=== PATIENT | male | born 1955 | race Caucasian/White ===

== ENCOUNTER 2016-03-16 09:13 | Inpatient (IN) | payer BC ==
[~2016-03-16] VITALS: Ht 185.4 cm; Wt 121.4 kg
[~2016-03-16 09:13] MED LIST: DEX4T PO
[2016-03-16 10:15] LABS: Hematocrit 35.1 % (41.0-53.0); Hemoglobin 11.6 g/dL (13.5-17.5); Mean Corpuscular Hemoglobin 29.3 pg (28.0-32.0); Mean Corpuscular Hgb Conc. 32.9 g/dL (32.0-36.0); Mean Corpuscular Volume 89.1 fL (80.0-100.0); Mean Platelet Volume 6.7 fL (7.4-10.4); Platelet Count (auto) 413 10^3/uL (140-450); Red Cell Distribution Width 16.3 % (11.6-16.0); SUSPECT VIEW TRANSMISSION
[2016-03-16] MEDS ORDERED: ONDANSETRON HCL 4 MG/2 ML VIAL IV ONE (10:15)
[2016-03-16] MEDS ORDERED: MORPHINE SULF INJ 2 MG/ML SYRINGE 1ML IV ONE (10:15)
[2016-03-16] MEDS ORDERED: SODIUM CHLORIDE 0.9% 500 ML IV ONE (10:15)
[2016-03-16 10:16] LABS: Metamyelocytes % 0; Myelocytes % 0; Promyelocytes % 0; Reactive Lymphocytes 0
[2016-03-16 10:29] LABS: Albumin 1.6 g/dL (3.4-5.0); Bilirubin, Total 0.8 mg/dL (0.2-1.0); Calcium 7.8 mg/dL (8.5-10.1); Potassium 4.4 mmol/L (3.5-5.1); Total Protein 6.4 g/dL (6.4-8.2)
[2016-03-16 10:59] LABS: Platelet Estimate Adequate; RBC Morphology Normal
[2016-03-16 11:06] LABS: Lactic Acid 2.2 mmol/L (0.4-2.0)
[2016-03-16 11:07] LABS: REFLEX LACTIC ACID YES OR NO YES
[2016-03-16] MEDS ORDERED: MORPHINE SULFATE 4 MG/ML SYRG IV ONE (13:15)
[2016-03-16] MEDS ORDERED: CARI-277 PO (13:22)
[2016-03-16] MEDS ORDERED: CALC-450 PO (13:22)
[2016-03-16] MEDS ORDERED: MORP1CAP32 PO (13:22)
[2016-03-16] MEDS ORDERED: FOLI1TAB6 PO (13:22)
[2016-03-16] MEDS ORDERED: BUME1TAB26 PO (13:24)
[2016-03-16] MEDS ORDERED: POTA10TA51 PO (13:24)
[2016-03-16] MEDS ORDERED: cefTRIAXone 1GM/50ML D5W 50 ML IV ONE ×2 (16:30→17:45)
[2016-03-16] MEDS ORDERED: CLINDAMYCIN 600MG IV 50 ML IV ONE (16:30)
[2016-03-16] MEDS ORDERED: ONDANSETRON HCL 4 MG/2 ML VIAL IV PRN (16:30)
[2016-03-16] MEDS: HYDROmorphone HCL 2 MG/ML VL IV PRN ×2 (16:42→23:55)
[2016-03-16] MEDS: D5W/SOD CHLO 0.9% 1,000 ML IV SCH (17:23)
[2016-03-16 19:25] VITALS: BP 128/77
[2016-03-16] MEDS: HYDROcodone-ACET 5/325MG TAB PO PRN (21:58)
[2016-03-16 22:00] VITALS: BP 128/77
[2016-03-16] MEDS: CLINDAMYCIN 600MG IV 50 ML IV SCH (22:17)
[2016-03-17] MEDS: HYDROmorphone HCL 2 MG/ML VL IV PRN ×2 (04:12→13:17)
[2016-03-17 05:37] LABS: Calcium 7.8 mg/dL (8.5-10.1); Potassium 4.4 mmol/L (3.5-5.1)
[2016-03-17 05:39] LABS: BUN/Creatinine Ratio 28.8
[2016-03-17] MEDS: D5W/SOD CHLO 0.9% 1,000 ML IV SCH ×2 (05:50→19:10)
[2016-03-17] MEDS: HYDROcodone-ACET 5/325MG TAB PO PRN (05:52)
[2016-03-17 05:56] LABS: Hematocrit 34.5 % (41.0-53.0); Hemoglobin 11.2 g/dL (13.5-17.5); Mean Corpuscular Hgb Conc. 32.4 g/dL (32.0-36.0); Mean Corpuscular Volume 89.4 fL (80.0-100.0); Mean Platelet Volume 7.3 fL (7.4-10.4); Platelet Count (auto) 355 10^3/uL (140-450); Red Cell Distribution Width 15.4 % (11.6-16.0); SUSPECT VIEW TRANSMISSION; White Blood Cell 26.9 10^3/uL (4.4-10.8)
[2016-03-17] MEDS: CLINDAMYCIN 600MG IV 50 ML IV SCH (05:56)
[2016-03-17 07:26] LABS: Metamyelocytes % 0; Myelocytes % 0; Promyelocytes % 0; Reactive Lymphocytes 0
[2016-03-17] MEDS ORDERED: HYDROmorphone HCL 2 MG/ML VL IV PRN (08:15)
[2016-03-17 08:30] VITALS: BP 115/77
[2016-03-17 08:30] LABS: Platelet Estimate Adequate; RBC Morphology Normal
[2016-03-17] MEDS ORDERED: cefTRIAXone 1GM/50ML D5W 50 ML IV SCH (09:00)
[2016-03-17 09:22] LABS: Partial Thromboplastin Time 32.1 sec (22.64-33.71)
[2016-03-17 09:27] LABS: INR 1.8 (0.9-1.15); Prothrombin Time 18.5 sec (9.37-12.3)
[2016-03-17] MEDS ORDERED: DEXA4TAB PO (10:07)
[2016-03-17] MEDS ORDERED: HYDR2TAB27 PO (10:09)
[2016-03-17] MEDS ORDERED: ZOLP10TA6 PO (10:10)
[2016-03-17] MEDS: SENNA 8.6 MG TAB PO SCH ×2 (10:27→22:57)
[2016-03-17] MEDS ORDERED: VANCOMYCIN PER PHARMACY 0 MG IV SCH (12:15)
[2016-03-17] MEDS: DOCUSATE SOD 100 MG CAP PO SCH ×2 (12:18→22:57)
[2016-03-17] MEDS ORDERED: LEVOFLOXACIN 500MG 100 ML IV SCH (12:20)
[2016-03-17 13:00] VITALS: BP 137/77
[2016-03-17] MEDS: VANCOMYCIN 1,250 MG in D5W 5% 250 ML IV SCH (13:00)
[2016-03-17] MEDS: MORPHINE SULF 30 mg ER tab PO SCH ×2 (14:15→22:58)
[2016-03-17] MEDS: LEVOFLOXACIN 500MG 100 ML IV SCH (15:24)
[2016-03-17 17:02] VITALS: BP 123/79
[2016-03-17] MEDS: BOOST PLUS 8 ounce PO SCH (17:28)
[2016-03-17 20:25] LABS: Body Fluid Polymorphonuclear 91 %
[2016-03-17 20:52] VITALS: BP 112/67
[2016-03-18] MEDS: VANCOMYCIN 1,250 MG in D5W 5% 250 ML IV SCH ×2 (01:00→13:42)
[2016-03-18 04:55] VITALS: BP 113/69
[2016-03-18 06:33] LABS: Hemoglobin 10.8 g/dL (13.5-17.5); Mean Corpuscular Hemoglobin 28.7 pg (28.0-32.0); Mean Corpuscular Hgb Conc. 31.9 g/dL (32.0-36.0); Mean Corpuscular Volume 89.9 fL (80.0-100.0); Mean Platelet Volume 7.2 fL (7.4-10.4); Platelet Count (auto) 329 10^3/uL (140-450); Red Cell Distribution Width 16.3 % (11.6-16.0); SUSPECT VIEW TRANSMISSION; White Blood Cell 23.3 10^3/uL (4.4-10.8)
[2016-03-18] MEDS: MORPHINE SULF 30 mg ER tab PO SCH ×3 (06:34→23:02)
[2016-03-18 06:48] LABS: Metamyelocytes % 0; Myelocytes % 0; Promyelocytes % 0; Reactive Lymphocytes 0
[2016-03-18 07:12] LABS: Platelet Estimate Adequate
[2016-03-18 07:14] LABS: Burr Cells MODERATE; Ovalocytes MODERATE
[2016-03-18] MEDS: BOOST PLUS 8 ounce PO SCH ×2 (08:00→18:00)
[2016-03-18] MEDS: D5W/SOD CHLO 0.9% 1,000 ML IV SCH (08:30)
[2016-03-18] MEDS: LEVOFLOXACIN 500MG 100 ML IV SCH (08:58)
[2016-03-18] MEDS: SENNA 8.6 MG TAB PO SCH ×2 (08:58→23:02)
[2016-03-18] MEDS: DOCUSATE SOD 100 MG CAP PO SCH ×2 (08:58→23:01)
[2016-03-18 09:00] VITALS: BP 122/74
[2016-03-18 13:00] VITALS: BP 120/73
[2016-03-18] MEDS ORDERED: NALOXONE HCL 0.4 MG/ML VIAL ONE (13:20)
[2016-03-18] MEDS ORDERED: FLUMAZENIL 0.1 MG/ML INJ 10ML MDV IV ONE (13:20)
[2016-03-18] MEDS ORDERED: fentaNYL CITRATE 100 MCG/2 ML VL ONE (13:21)
[2016-03-18] MEDS ORDERED: MIDAZOLAM HCL 1MG/1ML-2 ML VIAL ONE (13:21)
[2016-03-18 17:00] VITALS: BP 124/76
[2016-03-18 21:14] VITALS: BP 131/78
[2016-03-19] MEDS: VANCOMYCIN 1,250 MG in D5W 5% 250 ML IV SCH ×3 (01:52→17:56)
[2016-03-19 04:56] VITALS: BP 122/77
[2016-03-19 05:48] LABS: Hematocrit 34.1 % (41.0-53.0); Mean Corpuscular Hgb Conc. 32.3 g/dL (32.0-36.0); Mean Corpuscular Volume 89.7 fL (80.0-100.0); Mean Platelet Volume 7.1 fL (7.4-10.4); Platelet Count (auto) 313 10^3/uL (140-450); Red Cell Distribution Width 16.7 % (11.6-16.0); SUSPECT VIEW TRANSMISSION; White Blood Cell 25.6 10^3/uL (4.4-10.8)
[2016-03-19 05:58] LABS: Metamyelocytes % 0; Myelocytes % 0; Promyelocytes % 0; Reactive Lymphocytes 0
[2016-03-19] MEDS: MORPHINE SULF 30 mg ER tab PO SCH ×3 (06:23→22:50)
[2016-03-19 06:45] LABS: Platelet Estimate Adequate
[2016-03-19 06:46] LABS: Anisocytosis Slight
[2016-03-19 06:47] LABS: Ovalocytes FEW
[2016-03-19] MEDS: BOOST PLUS 8 ounce PO SCH ×2 (08:23→17:56)
[2016-03-19] MEDS: SENNA 8.6 MG TAB PO SCH ×2 (09:45→22:50)
[2016-03-19] MEDS: DOCUSATE SOD 100 MG CAP PO SCH ×2 (09:47→22:49)
[2016-03-19 10:15] VITALS: BP 113/74
[2016-03-19] MEDS: LEVOFLOXACIN 500MG 100 ML IV SCH (12:08)
[2016-03-19] MEDS: HYDROcodone-ACET 5/325MG TAB PO PRN ×2 (13:54→17:55)
[2016-03-19 14:12] VITALS: BP 126/74
[2016-03-19 16:38] VITALS: BP 105/68
[2016-03-19] MEDS: HYDROmorphone HCL 2 MG/ML VL IV PRN ×2 (20:14→20:58)
[2016-03-19 22:14] VITALS: BP 125/63
[2016-03-20] MEDS: VANCOMYCIN 1,250 MG in D5W 5% 250 ML IV SCH ×3 (01:08→17:20)
[2016-03-20 05:01] VITALS: BP 107/64
[2016-03-20] MEDS: HYDROmorphone HCL 2 MG/ML VL IV PRN ×3 (05:04→17:20)
[2016-03-20] MEDS: MORPHINE SULF 30 mg ER tab PO SCH ×3 (06:14→22:10)
[2016-03-20] MEDS: BOOST PLUS 8 ounce PO SCH ×2 (08:00→18:10)
[2016-03-20 08:35] VITALS: BP 111/74
[2016-03-20] MEDS ORDERED: LIDOCAINE 2%HCL (LOCAL ANESTH.) INJ 20ML MDV ONE (09:07)
[2016-03-20] MEDS ORDERED: MIDAZOLAM HCL 1MG/1ML-2 ML VIAL ONE (09:16)
[2016-03-20] MEDS ORDERED: fentaNYL CITRATE 100 MCG/2 ML VL ONE (09:16)
[2016-03-20] MEDS: DOCUSATE SOD 100 MG CAP PO SCH ×2 (10:58→22:10)
[2016-03-20] MEDS: SENNA 8.6 MG TAB PO SCH ×2 (10:58→22:10)
[2016-03-20] MEDS: LEVOFLOXACIN 500MG 100 ML IV SCH (12:19)
[2016-03-20] MEDS: HYDROcodone-ACET 5/325MG TAB PO PRN ×2 (12:19→20:27)
[2016-03-20 12:39] VITALS: BP 101/64
[2016-03-20 17:25] VITALS: BP 107/61
[2016-03-20 21:57] VITALS: BP 101/64
[2016-03-20] MEDS ORDERED: ZOLPIDEM TARTRATE 5 MG TAB PO PRN (22:15)
[2016-03-21] MEDS: VANCOMYCIN 1,250 MG in D5W 5% 250 ML IV SCH ×3 (00:37→17:18)
[2016-03-21 04:38] VITALS: BP 106/72
[2016-03-21 05:26] LABS: Hematocrit 28.4 % (41.0-53.0); Hemoglobin 9.3 g/dL (13.5-17.5); Mean Corpuscular Hemoglobin 29.4 pg (28.0-32.0); Mean Corpuscular Hgb Conc. 32.9 g/dL (32.0-36.0); Mean Corpuscular Volume 89.4 fL (80.0-100.0); Mean Platelet Volume 7.2 fL (7.4-10.4); Platelet Count (auto) 258 10^3/uL (140-450); Red Cell Distribution Width 16.4 % (11.6-16.0); SUSPECT VIEW TRANSMISSION
[2016-03-21 05:31] LABS: Metamyelocytes % 0; Myelocytes % 0; Promyelocytes % 0; Reactive Lymphocytes 0
[2016-03-21 05:41] LABS: BUN/Creatinine Ratio 36.8; Calcium 6.7 mg/dL (8.5-10.1); Potassium 4.1 mmol/L (3.5-5.1)
[2016-03-21] MEDS: MORPHINE SULF 30 mg ER tab PO SCH ×3 (06:02→22:13)
[2016-03-21 08:01] LABS: Anisocytosis Slight; Ovalocytes FEW; Platelet Estimate Adequate
[2016-03-21 09:00] VITALS: BP 119/72
[2016-03-21] MEDS: BOOST PLUS 8 ounce PO SCH ×2 (09:08→17:18)
[2016-03-21] MEDS: SENNA 8.6 MG TAB PO SCH ×2 (09:19→22:13)
[2016-03-21] MEDS: DOCUSATE SOD 100 MG CAP PO SCH ×2 (09:19→22:13)
[2016-03-21] MEDS: HYDROmorphone HCL 2 MG/ML VL IV PRN ×4 (09:19→21:18)
[2016-03-21] MEDS: LEVOFLOXACIN 500MG 100 ML IV SCH (11:57)
[2016-03-21 13:00] VITALS: BP 104/66
[2016-03-21 16:55] VITALS: BP 108/60
[2016-03-21 22:00] VITALS: BP 101/65
[2016-03-21 22:30] VITALS: BP 113/67
[2016-03-22] MEDS: VANCOMYCIN 1,250 MG in D5W 5% 250 ML IV SCH ×3 (01:04→17:41)
[2016-03-22] MEDS: HYDROmorphone HCL 2 MG/ML VL IV PRN ×6 (01:04→18:49)
[2016-03-22] MEDS: HYDROcodone-ACET 5/325MG TAB PO PRN ×3 (02:42→15:45)
[2016-03-22 05:00] VITALS: BP 107/57
[2016-03-22] MEDS: MORPHINE SULF 30 mg ER tab PO SCH ×3 (05:48→21:51)
[2016-03-22] MEDS: DOCUSATE SOD 100 MG CAP PO SCH ×2 (08:29→21:51)
[2016-03-22] MEDS: SENNA 8.6 MG TAB PO SCH ×2 (08:29→21:51)
[2016-03-22] MEDS: BOOST PLUS 8 ounce PO SCH ×2 (08:29→17:55)
[2016-03-22 09:00] VITALS: BP 104/63
[2016-03-22] MEDS: LEVOFLOXACIN 500MG 100 ML IV SCH (12:02)
[2016-03-22 13:00] VITALS: BP 107/62
[2016-03-22 17:00] VITALS: BP 118/71
[2016-03-22 22:00] VITALS: BP 119/64
[2016-03-23] MEDS: VANCOMYCIN 1,250 MG in D5W 5% 250 ML IV SCH ×2 (00:29→10:03)
[2016-03-23] MEDS: HYDROmorphone HCL 2 MG/ML VL IV PRN ×4 (00:29→13:38)
[2016-03-23] MEDS: HYDROcodone-ACET 5/325MG TAB PO PRN ×2 (01:32→11:39)
[2016-03-23 05:00] VITALS: BP 119/78
[2016-03-23] MEDS: MORPHINE SULF 30 mg ER tab PO SCH ×2 (06:28→14:11)
[2016-03-23 06:42] LABS: DEFINITIVE VIEW TRANSMISSION; Mean Platelet Volume 7.4 fL (7.4-10.4); SUSPECT VIEW TRANSMISSION
[2016-03-23 06:56] LABS: Hematocrit 33.7 % (41.0-53.0); Hemoglobin 10.8 g/dL (13.5-17.5); Mean Corpuscular Hemoglobin 28.4 pg (28.0-32.0); Platelet Count (auto) 354 10^3/uL (140-450); Red Cell Distribution Width 17.2 % (11.6-16.0)
[2016-03-23 06:58] LABS: White Blood Cell 35.1 10^3/uL (4.4-10.8)
[2016-03-23 06:59] LABS: Metamyelocytes % 0; Myelocytes % 0; Promyelocytes % 0; Reactive Lymphocytes 0
[2016-03-23 07:44] LABS: Platelet Estimate Adequate
[2016-03-23 08:32] LABS: BUN/Creatinine Ratio 29.7; Calcium 7.4 mg/dL (8.5-10.1); Potassium 4.5 mmol/L (3.5-5.1)
[2016-03-23 09:00] VITALS: BP 101/64
[2016-03-23] MEDS: DOCUSATE SOD 100 MG CAP PO SCH (10:03)
[2016-03-23] MEDS: SENNA 8.6 MG TAB PO SCH (10:03)
[2016-03-23] MEDS: BOOST PLUS 8 ounce PO SCH (10:03)
[2016-03-23 13:00] VITALS: BP 105/63
[2016-03-23] MEDS: LEVOFLOXACIN 500MG 100 ML IV SCH (13:39)
== END 2016-03-23 15:40 | disposition hospice, home (50) | DRG 871 ==
LOC: EDUNIT# 09:13 → ER 09:19 → OVERFLOW 09:20 → EAST 19:25
PROVIDERS: ADMIT Internal Medicine; ATTEND Internal Medicine
PROC: 0W9B30Z Drainage of Left Pleural Cavity with Drainage Device, Percutaneous Approach (ICD-10-PCS; principal; 2016-03-17)
PROC: 0W9B30Z Drainage of Left Pleural Cavity with Drainage Device, Percutaneous Approach (ICD-10-PCS; 2016-03-18)
PROC: 0W9B30Z Drainage of Left Pleural Cavity with Drainage Device, Percutaneous Approach (ICD-10-PCS; 2016-03-20)
DX: A41.9 Sepsis, unspecified organism (principal); E43 Unspecified severe protein-calorie malnutrition; J96.00 Acute respiratory failure, unspecified whether with hypoxia or hypercapnia; C34.90 Malignant neoplasm of unspecified part of unspecified bronchus or lung; C78.7 Secondary malignant neoplasm of liver and intrahepatic bile duct; E87.1 Hypo-osmolality and hyponatremia; J91.0 Malignant pleural effusion; C79.51 Secondary malignant neoplasm of bone; R59.0 Localized enlarged lymph nodes; Z51.5 Encounter for palliative care; E87.8 Other disorders of electrolyte and fluid balance, not elsewhere classified; F17.200 Nicotine dependence, unspecified, uncomplicated; Z80.1 Family history of malignant neoplasm of trachea, bronchus and lung; Z68.35 Body mass index [BMI] 35.0-35.9, adult; Z92.21 Personal history of antineoplastic chemotherapy
CPT/HCPCS: 36415; 36600; 51703; 59025; 71010; 71250; 76942; 80048; 80053; 80202; 81002; 82805; 82945; 82948; 82962; 83605; 83615; 83986; 84157; 84484; 85007; 85027; 85610; 85730; 87040; 87070; 87081; 87205; 88341; 89051; 93005; 94762; 96361; 96365; 96366; 96374; 96375; 96376; 99291; J0696; J1956; J2250; J2405; J3490; J7042; J7060